=== PATIENT | male | born 1965 | race Caucasian/White ===

== ENCOUNTER 2017-11-23 21:24 | Emergency (ER) | payer OTHER ==
[~2017-11-23] VITALS: Ht 177.8 cm; Wt 116.3 kg
[~2017-11-23 21:24] MED LIST changes: -CIPR250T3 PO; -LEVO750T23 PO; -NVLG SC; -ONDA4TAB10 SL; -PLQ200 PO; -PRED10TA PO
[2017-11-23 21:29] VITALS: Ht 177.8 cm; Wt 116.3 kg
[2017-11-23] MEDS ORDERED: NVLG SC (22:16)
[2017-11-23] MEDS ORDERED: CIPR250T3 PO (22:16)
[2017-11-23] MEDS ORDERED: PLQ200 PO (22:16)
[2017-11-23] MEDS ORDERED: PRED10TA PO (22:16)
[2017-11-23] MEDS ORDERED: LSN25 PO (22:16)
[2017-11-23] MEDS ORDERED: INSDGI SC (22:16)
[2017-11-23] MEDS ORDERED: KETOROLAC TROMETHAMINE 30 MG/ML VIAL IV STA (23:07)
[2017-11-23] MEDS ORDERED: METOCLOPRAMIDE HCL INJ 5 MG/ML 2 ML VIAL IV. STA (23:07)
[2017-11-23] MEDS ORDERED: ACETAMINOPHEN IV 1,000 MG in EMPTY BAG 0 ML IV ONE (23:15)
[2017-11-23] MEDS ORDERED: SODIUM CHLORIDE 0.9% 1000ML 1,000 ML, SODIUM CHLORIDE 0.9% 1000ML 1,000 ML IV ONE (23:15)
[2017-11-23] MEDS ORDERED: ACETAMINOPHEN 1000 MG/100 ML IV IV ONE (23:28)
[2017-11-23 23:42] LABS: INFLUENZA B ANTIGEN Neg for Influ B (NEG)
[2017-11-24 00:01] LABS: HEMATOCRIT 41.4 % (42-52); HEMOGLOBIN 14.8 g/dL (14.0-18.0); IG# 0.02 K/uL (0.00-0.02); LYMPH % 2.2 %; LYMPH ABS # 0.22 K/uL (1.2-3.4); MEAN CELL VOLUME 84.5 fL (80-100); MEAN CORPUSCULAR HEMOGLOBIN 30.2 pg (25-34); MEAN CORPUSCULAR HGB CONC 35.7 g/dl (32-36); MEAN PLATELET VOLUME 11.5 fL (7.4-10.4); MONO % 4.9 %; NEUT % 92.7 %; NEUT ABS # 9.46 K/uL (1.4-6.5); PLATELET COUNT 140 K/uL (130-400); RED CELL DISTRIBUTION WIDTH SD 42.8 fL (36.4-46.3)
[2017-11-24 00:08] LABS: ALBUMIN 3.1 gm/dl (3.4-5.0); CALCIUM 8.5 mg/dl (8.5-10.1); CREATININE 1.9 mg/dl (0.60-1.40)
[2017-11-24 00:11] LABS: TOTAL PROTEIN 8.4 gm/dl (6.4-8.2)
[2017-11-24] MEDS ORDERED: LEVO750T23 PO (01:57)
[2017-11-24] MEDS ORDERED: ONDA4TAB10 SL (01:57)
[2017-11-24] MEDS ORDERED: LEVOFLOXACIN 250 MG TAB PO ONE (02:00)
[2017-11-24] MEDS ORDERED: ONDANSETRON HOME PACK 4MG OD TAB PO ONE (02:00)
[2017-11-24 02:30] VITALS: BP 118/58; PULSE 90; TEMP 37; O2SAT 94
--- NOTE | 2017-11-24 06:55 | DIAGNOSTIC IMAGING REPORT ---
CHEST 2 VIEWS ROUTINE CLINICAL HISTORY: Fever. Cough. Dyspnea COMPARISON STUDY: 10/07/2015 FINDINGS: Developing parenchymal infiltrate left lung base. Extensive granulomatous change throughout the mediastinal hilar regions which has been described previously. Left infrahilar calcified granulomas considered stable. Pulmonary apices are considered clear. IMPRESSION: 1. Extensive chronic granulomatous change. 2. Probable developing parenchymal infiltrate left base. The above report was generated using voice recognition software. It may contain grammatical, syntax or spelling errors. Electronically signed by: Al Luevano M.D. 11/24/2017 6:54 AM Dictated Date/Time: 11/24/2017 6:53 AM
--- NOTE | 2017-11-27 22:05 | EMERGENCY ROOM VISIT NOTE ---
History First contact with patient: 22:43 Chief Complaint: FEVER Stated Complaint: FEVER, CHILLS, NAUSEA FOR 4 DAYS History of Present Illness The patient is a 52 year old male who presents to the Emergency Room with complaints of fever, chills, and nausea for the past 4 days. The patient has a history of sarcoidosis and is on immunosuppressants. He takes plaqueinil and prednisone on a daily basis. The patient went to his primary care physician's office and was started on Cipro for her symptoms. He states tonight his symptoms have worsened, prompting him to come to the ER. The patient feels like he is breathing well, and does not significantly short of breath. He has not had abdominal pain. The patient notes a rash on his right leg which evidently occurs from time to time when he becomes ill. The patient is diabetic. He rates his overall discomfort a 6/10.. Review of Systems More than 10 systems were reviewed and otherwise negative with the exception of history of present illness. Past Medical/Surgical History Medical Problems: (1) Cholecystitis Family History No pertinent family history Social History Smoking Status: Never Smoker Alcohol Use: none Marital Status: Occupation Status: employed Current/Historical Medications Scheduled Aspirin (Aspirin Ec), 81 MG PO QPM Ciprofloxacin (Cipro), 250 MG PO BID Hydroxychloroquine Sulfate (Hydroxychloroquine Sulfat), 200 MG PO BID Insulin Aspart (Novolog), 1 DOSE SC ACHS Insulin Glargine (Lantus), 50 UNITS SC DAILY Levofloxacin (Levaquin), 1 TAB PO DAILY Lisinopril (Lisinopril), 2.5 MG PO DAILY Ondasetron Odt (Zofran Odt), 4 MG SL Q6H Prednisone (Prednisone), 5 MG PO UD Prednisone Tab (Prednisone), 10 MG PO UD Physical Exam Vital Signs Date Time Temp Pulse Resp B/P (MAP) Pulse Ox O2 Delivery O2 Flow Rate FiO2 11/24/17 02:30 37.0 90 16 118/58 94 11/24/17 00:31 38.0 103 18 115/49 92 Room Air 11/23/17 23:20 Room Air 11/23/17 23:17 121 11/23/17 22:56 39.5 116 20 136/62 93 Room Air 11/23/17 21:29 37.5 125 19 144/74 94 Room Air Physical Exam VITALS: Vitals are noted on the nurse's note and reviewed by myself. Vital signs with fever GENERAL: Well-developed, well-nourished,white male, who appears mildly ill. Patient is cooperative with the examination. HEAD: Normocephalic atraumatic. EARS: External ear normal. External auditory canals clear, tympanic membranes pearly cobb without erythema or effusion bilaterally. EYES: Pupils equal round and reactive to light and accommodation. Conjunctivae without injection, sclerae without icterus. Extraocular movements intact. NOSE: Patent, turbinates without inflammation or discharge. MOUTH: Mucous membranes moist. Tonsils are not enlarged. Pharynx without erythema, blood, or exudate. Uvula midline. Airway patent. NECK: Supple without nuchal rigidity. No lymphadenopathy. No thyromegaly. Cervical spine is nontender. HEART: Regular rate and rhythm without murmurs gallops or rubs. LUNGS: Clear to auscultation bilaterally without wheezes, rales or rhonchi. No retractions or accessory muscle use. ABDOMEN: Positive normal bowel sounds x 4. Soft, nontender, without masses or organomegaly. No guarding or rebound tenderness. MUSCULOSKELETAL: No muscle atrophy, erythema, or edema noted. Full range of motion without joint tenderness in all extremities. Medical Decision & Procedures ER Provider Diagnostic Interpretation: CHEST 2 VIEWS ROUTINE CLINICAL HISTORY: Fever. Cough. Dyspnea COMPARISON STUDY: 10/07/2015 FINDINGS: Developing parenchymal infiltrate left lung base. Extensive granulomatous change throughout the mediastinal hilar regions which has been described previously. Left infrahilar calcified granulomas considered stable. Pulmonary apices are considered clear. IMPRESSION: 1. Extensive chronic granulomatous change. 2. Probable developing parenchymal infiltrate left base Laboratory Results 11/23/17 22:15 Red Blood Count 4.90, Mean Corpuscular Volume 84.5, Mean Corpuscular Hemoglobin 30.2, Mean Corpuscular Hemoglobin Concent 35.7, Mean Platelet Volume 11.5, Neutrophils (%) (Auto) 92.7, Lymphocytes (%) (Auto) 2.2, Monocytes (%) (Auto) 4.9, Eosinophils (%) (Auto) 0.0, Basophils (%) (Auto) 0.0, Neutrophils # (Auto) 9.46, Lymphocytes # (Auto) 0.22, Monocytes # (Auto) 0.50, Eosinophils # (Auto) 0.00, Basophils # (Auto) 0.00 11/23/17 22:15 Test 11/23/17 22:15 11/23/17 23:15 11/23/17 23:21 11/24/17 01:19 White Blood Count 10.20 K/uL (4.8-10.8) Red Blood Count 4.90 M/uL (4.7-6.1) Hemoglobin 14.8 g/dL (14.0-18.0) Hematocrit 41.4 % (42-52) Mean Corpuscular Volume 84.5 fL (80-100) Mean Corpuscular Hemoglobin 30.2 pg (25-34) Mean Corpuscular Hemoglobin Concent 35.7 g/dl (32-36) Platelet Count 140 K/uL (130-400) Mean Platelet Volume 11.5 fL (7.4-10.4) Neutrophils (%) (Auto) 92.7 % Lymphocytes (%) (Auto) 2.2 % Monocytes (%) (Auto) 4.9 % Eosinophils (%) (Auto) 0.0 % Basophils (%) (Auto) 0.0 % Neutrophils # (Auto) 9.46 K/uL (1.4-6.5) Lymphocytes # (Auto) 0.22 K/uL (1.2-3.4) Monocytes # (Auto) 0.50 K/uL (0.11-0.59) Eosinophils # (Auto) 0.00 K/uL (0-0.5) Basophils # (Auto) 0.00 K/uL (0-0.2) RDW Standard Deviation 42.8 fL (36.4-46.3) RDW Coefficient of Variation 14.0 % (11.5-14.5) Immature Granulocyte % (Auto) 0.2 % Immature Granulocyte # (Auto) 0.02 K/uL (0.00-0.02) Anion Gap 9.0 mmol/L (3-11) Est Creatinine Clear Calc Drug Dose 56.8 ml/min Estimated GFR () 45.3 Estimated GFR (Non- 39.1 BUN/Creatinine Ratio 14.9 (10-20) Calcium Level 8.5 mg/dl (8.5-10.1) Total Bilirubin 1.4 mg/dl (0.2-1) Aspartate Amino Transf (AST/SGOT) 18 U/L (15-37) Alanine Aminotransferase (ALT/SGPT) 25 U/L (12-78) Alkaline Phosphatase 109 U/L (45-117) Total Protein 8.4 gm/dl (6.4-8.2) Albumin 3.1 gm/dl (3.4-5.0) Globulin 5.3 gm/dl (2.5-4.0) Albumin/Globulin Ratio 0.6 (0.9-2) Lipase 93 U/L (73-393) Influenza Type A Antigen Neg for Influ A (NEG) Influenza Type B Antigen Neg for Influ B (NEG) Bedside Lactic Acid Venous 1.36 mmol/L (0.90-1.70) Urine Color DK YELLOW Urine Appearance CLEAR (CLEAR) Urine pH 5.0 (4.5-7.5) Urine Specific Pace 1.028 (1.000-1.030) Urine Protein 1+ (NEG) Urine Glucose (UA) 1+ (NEG) Urine Ketones 1+ (NEG) Urine Occult Blood TRACE (NEG) Urine Nitrite NEG (NEG) Urine Bilirubin NEG (NEG) Urine Urobilinogen NEG (NEG) Urine Leukocyte Esterase NEG (NEG) Urine WBC (Auto) 1-5 /hpf (0-5) Urine RBC (Auto) 5-10 /hpf (0-4) Urine Hyaline Casts (Auto) 1-5 /lpf (0-5) Urine Epithelial Cells (Auto) 10-20 /lpf (0-5) Urine Bacteria (Auto) NEG (NEG) Medications Administered Medications (Trade) Dose Ordered Sig/Jovany Route Start Time Stop Time Status Last Admin Dose Admin Sodium Chloride/ Sodium Chloride 2,000 ml @ 999 mls/hr Q2H1M ONCE IV 11/23/17 23:15 11/24/17 01:15 DC 11/23/17 23:15 999 MLS/HR Ketorolac Tromethamine (Toradol Inj) 30 mg NOW STAT IV 11/23/17 23:07 11/23/17 23:11 DC 11/23/17 23:31 30 MG Metoclopramide HCl (Reglan Inj) 10 mg NOW STAT IV. 11/23/17 23:07 11/23/17 23:11 DC 11/23/17 23:31 10 MG Acetaminophen (Ofirmev Iv) 1,000 mg STK-MED ONCE IV 11/23/17 23:28 11/23/17 23:29 DC 11/23/17 23:31 1,000 MG Levofloxacin (Levaquin Tab) 750 mg NOW ONCE PO 11/24/17 02:00 11/24/17 02:01 DC 11/24/17 01:54 750 MG Ondansetron HCl (ZOFRAN ODT 4MG Home Pack) 1 homepack UD ONCE PO 11/24/17 02:00 11/24/17 02:01 DC 11/24/17 01:54 1 HOMEPACK ED Course Physical exam and history were performed. Nursing notes, EMR, and Medication List were personally reviewed. Patient appears to have fever symptoms for the past few days. He appears ill and flulike on examination. He is considered immunosuppressed. IV access was established and labs were obtained. The patient was aggressively hydrated with normal saline. He was given IV Toradol and IV Tylenol in the department. X- ray was performed. Cultures were obtained. The patient's blood work is as above and was reviewed. He does not have a significantly elevated white blood cell count, gross anemia, or significant electrolyte imbalance. His sugar is elevated at greater than 200. POC Lactic acid is normal with cultures pending. Influenza swabs were also negative. The patient's chest x-ray was reviewed by myself and my attending, and we did not appreciate significant change from previous imaging studies. Official radiology read was pending at the time of our interpretation, and did return as above. I discussed further options of care with the patient and family. His fever improved significantly with care here in the department, and clinically he felt much better. His heart rate returned to essentially normal, and subjectively reported almost complete resolution of his discomfort. Taking into consideration the patient's chronic medical disease I did offer admission to the facility. After discussing this, the patient and family felt comfortable with discharge home. I will change the patient from Cipro to Levaquin for antibiotic coverage. The patient was asked to follow with his PCP on a short interval for a recheck. He understands the importance of returning with any new , worsening, or concerning symptoms. The chart was completed utilizing Assignment Editor Voice Recognition Software. Grammatical errors, random word insertions, pronoun errors, and incomplete sentences are an occasional consequence of this system due to software limitations, ambient noise, and hardware issues. Any formal questions or concerns about the content, text, or information contained within the body of this dictation should be directly addressed to the provider for clarification. . Medical Decision Differential diagnosis: Etiologies such as viral syndrome, otitis, pharyngitis, pneumonia, influenza, meningitis, urinary tract infection, sepsis, bacteremia, as well as others were entertained. Impression Primary Impression: Fever Additional Impression: Influenza-like symptoms Departure Information Dispostion Home / Self-Care Condition GOOD Prescriptions Ondasetron Odt (ZOFRAN ODT) 4 Mg Tab 4 MG SL Q6H for Nausea, #12 TAB Prov: Los Christian PA-C 11/24/17 Levofloxacin (LEVAQUIN) 750 Mg Tab 1 TAB PO DAILY for 7 Days, #7 TAB Prov: Los Christian PA-C 11/24/17 Referrals Amando Rosales M.D. (PCP) Forms HOME CARE DOCUMENTATION FORM, IMPORTANT VISIT INFORMATION Patient Instructions My [facility] Additional Instructions You were seen and evaluated today on an emergency basis only. This is not a substitute for, or an effort to provide, complete comprehensive medical care. It is not possible to recognize and treat all injuries or illnesses in a single emergency department visit. For this reason it is recommended that you followup with your primary care physician's office in the next 1-2 days for a recheck of your condition. For baseline pain relief you may alternate ibuprofen and acetaminophen every 4 hours for pain control. Take 600 mg ibuprofen (Advil) and then 4 hours later take 1000 mg acetaminophen (Tylenol). Do not take more than 3000 mg acetaminophen in a single day. Zofran 4 mg ODT: Dissolve 1 tablet every 6 hrs as needed for nausea. Take Levaquin daily for the next 7 days. Discontinue Cipro. You are welcome to return to the emergency department anytime with new, worsening, or concerning symptoms. Problem Qualifiers
== END 2017-11-24 02:30 | disposition home or self-care (01) ==
LOC: C.EDB 21:24 → C.EDA 11-24 02:30
DX: R50.9 Fever, unspecified (principal); R11.0 Nausea; Z79.899 Other long term (current) drug therapy; D86.9 Sarcoidosis, unspecified

== ENCOUNTER → 2017-11-23 | Outpatient (CLI) | payer OTHER ==
[~2017-11-23] MED LIST: ASPI81TA28 PO; CIPR250T3 PO; HYDR0.5T PO; INSDGI SC; INSUINJ SC; LEVO750T23 PO; LSN25 PO; NVLG SC; NVLGI SC; ONDA4TAB10 SL; ONDA4TAB46 PO; PLQ200 PO; PRED-301 PO; PRED10TA PO; RED YEAST PO
[2017-11-23 16:01] LABS: BASO % 0.1 %; BASO ABS # 0.01 K/uL (0-0.2); HEMATOCRIT 41.5 % (42-52); HEMOGLOBIN 14.5 g/dL (14.0-18.0); IG# 0.03 K/uL (0.00-0.02); LYMPH ABS # 0.63 K/uL (1.2-3.4); MEAN CORPUSCULAR HEMOGLOBIN 29.4 pg (25-34); MEAN CORPUSCULAR HGB CONC 34.9 g/dl (32-36); MEAN PLATELET VOLUME 10.8 fL (7.4-10.4); MONO % 8.4 %; MONO ABS # 0.88 K/uL (0.11-0.59); NEUT % 85.2 %; NEUT ABS # 8.93 K/uL (1.4-6.5); PLATELET COUNT 146 K/uL (130-400); RED CELL DISTRIBUTION WIDTH SD 42.5 fL (36.4-46.3); WHITE BLOOD COUNT 10.48 K/uL (4.8-10.8)
[2017-11-23 16:22] LABS: ALBUMIN 3.2 gm/dl (3.4-5.0); ALT/SGPT 23 U/L (12-78); AST/SGOT 17 U/L (15-37); BLOOD UREA NITROGEN 27 mg/dl (7-18); CALCIUM 8.5 mg/dl (8.5-10.1); CARBON DIOXIDE 26 mmol/L (21-32); CREATININE 1.87 mg/dl (0.60-1.40); GLUCOSE 198 mg/dl (70-99); POTASSIUM 3.8 mmol/L (3.5-5.1); SODIUM 130 mmol/L (136-145)
[2017-11-23 16:33] LABS: ALKALINE PHOSPHATASE 107 U/L (45-117); TOTAL PROTEIN 8.5 gm/dl (6.4-8.2)
== END | disposition home or self-care (01) ==
LOC: C.LAB1850 15:20
PROVIDERS: ATTEND Physician Assistant
DX: B09 Unspecified viral infection characterized by skin and mucous membrane lesions (principal)

== ENCOUNTER → 2017-12-08 | Outpatient (CLI) | payer OTHER ==
[~2017-12-08] MED LIST changes: +CIPR250T3 PO; -HYDR0.5T PO; -INSUINJ SC; +NVLG SC; -NVLGI SC; +ONDA4TAB10 SL; -ONDA4TAB46 PO; +PERFLUTREN LIPID MICROSPHERE (DEFINITY) IV ONE; +PLQ200 PO; +PRED10TA PO; -RED YEAST PO
[2017-12-08 16:23] LABS: BLOOD UREA NITROGEN 21 mg/dl (7-18); CALCIUM 8.9 mg/dl (8.5-10.1); CARBON DIOXIDE 32 mmol/L (21-32); CREATININE 1.45 mg/dl (0.60-1.40); GLUCOSE 168 mg/dl (70-99); POTASSIUM 4.1 mmol/L (3.5-5.1); SODIUM 137 mmol/L (136-145)
--- NOTE | 2017-12-08 17:26 | ECHOCARDIOGRAM REPORT ---
*NOTICE TO RECEIVING CONSTITUTION [employer]Y AGENCY This information is strictly Confidential and protected under [place] law. [place] law prohibits you from making any further disclosure of this information unless further disclosure is expressly permitted by the written consent of the person to whom it pertains or is authorized by law. A general authorization for the release of medical or other information is not sufficient for this purpose. Hospital accepts no responsibility if the information is made available to any other person, INCLUDING THE PATIENT. Interpretation Summary * Name: PEREZ MOTT Study Date: 12/08/2017 02:46 PM BP: 144/71 mmHg * Patient Location: [facility] HR: 75 * : 1965 (M/d/yyyy) Gender: Male Height: 70 in * Age: 52 yrs Ethnicity: [place] Weight: 250 lb * Ordering Physician: Fran Vicente * Referring Physician: Fran Vicente PA-C * Performed By: Ryann Mendez RDCS * * Reason For Study: Shortness of Breath, Aortic Valve Disorder (424.1) * BSA: 2.3 m2 * -- Conclusions -- * The study was technically adequate. * There is borderline concentric left ventricular hypertrophy. * Left ventricular systolic function is normal. * Grade I diastolic dysfunction, (abnormal relaxation pattern). * Mild aortic regurgitation. * Right ventricular systolic pressure is normal. * Compared to study performed in 2013, there is no significant change Procedure Details * A complete two-dimensional transthoracic echocardiogram was performed (2D, M-mode, Doppler and color flow Doppler). * A contrast injection of Definity was performed to improve assessment of LV function. * Contrast was injected into an intravenous site in the right arm. * One vial of Definity ultrasound contrast was diluted in normal saline to a total volume of 10 ml. A total of '2' ml of solution was administered during imaging. * Lot # [id number] of Definity utilized for procedure. * Expiration date . * The attending nurse who injected the contrast agent was Sandi Serrano RN. * The study was technically adequate. Left Ventricle * The left ventricle is grossly normal size. * There is borderline concentric left ventricular hypertrophy. * Ejection Fraction = 60-65%. * Left ventricular systolic function is normal. * Grade I diastolic dysfunction, (abnormal relaxation pattern). * The left ventricular wall motion is normal. Right Ventricle * The right ventricle is normal in size and function. * The right ventricular systolic function is normal as assessed by tricuspid annular plane systolic excursion (TAPSE) (normal >1.5 cm). Atria * The left atrial size is normal. * Right atrial size is normal. Mitral Valve * The mitral valve is grossly normal. * Significant mitral regurgitation is absent. Tricuspid Valve * The tricuspid valve is not well visualized, but is grossly normal. * There is trace tricuspid regurgitation. * Right ventricular systolic pressure is normal. Aortic Valve * The aortic valve is not well visualized. * Probably trileaflet * No hemodynamically significant valvular aortic stenosis. * Mild aortic regurgitation. Great Vessels * The aortic root is normal size. Pericardium/Pleural * There is no pericardial effusion. Great Vessels * Normal inferior vena cava diameter and respiratory variation suggests normal central venous pressure. MMode 2D Measurements and Calculations IVSd 1.2 cm IVSs 1.5 cm LVIDd 5.3 cm LVIDs 3.6 cm LVPWd 1.3 cm LVPWs 1.4 cm IVS/LVPW 0.95 FS 32.2 % EDV(Teich) 135.6 ml ESV(Teich) 54.2 ml EF(Teich) 60.0 % EDV(cubed) 149.3 ml ESV(cubed) 46.5 ml EF(cubed) 68.9 % % IVS thick 21.3 % % LVPW thick 9.7 % LV mass(C)d 267.2 grams LV mass(C)dI 116.4 grams/m\S\2 LV mass(C)s 184.5 grams LV mass(C)sI 80.4 grams/m\S\2 SV(Teich) 81.4 ml SI(Teich) 35.5 ml/m\S\2 SV(cubed) 102.8 ml SI(cubed) 44.8 ml/m\S\2 Ao root diam 2.8 cm Ao root area 6.2 cm\S\2 ACS 1.6 cm LA dimension 3.1 cm LA/Ao 1.1 LVOT diam 2.2 cm LVOT area 3.9 cm\S\2 LVAd ap4 34.2 cm\S\2 LVLd ap4 8.0 cm EDV(MOD-sp4) 118.7 ml EDV(sp4-el) 123.8 ml LVAs ap4 18.8 cm\S\2 LVLs ap4 7.9 cm ESV(MOD-sp4) 38.0 ml ESV(sp4-el) 38.2 ml EF(MOD-sp4) 68.0 % EF(sp4-el) 69.1 % LVAd ap2 32.8 cm\S\2 LVLd ap2 8.5 cm EDV(MOD-sp2) 112.7 ml EDV(sp2-el) 107.0 ml LVAs ap2 18.4 cm\S\2 LVLs ap2 7.4 cm ESV(MOD-sp2) 39.8 ml ESV(sp2-el) 38.6 ml EF(MOD-sp2) 64.7 % EF(sp2-el) 63.9 % LVLd %diff 6.0 % EDV(MOD-bp) 115.5 ml LVLs %diff -6.03 % ESV(MOD-bp) 39.9 ml EF(MOD-bp) 65.4 % SV(MOD-sp4) 80.7 ml SI(MOD-sp4) 35.2 ml/m\S\2 SV(MOD-sp2) 72.9 ml SI(MOD-sp2) 31.8 ml/m\S\2 SV(MOD-bp) 75.6 ml SI(MOD-bp) 32.9 ml/m\S\2 SV(sp4-el) 85.5 ml SI(sp4-el) 37.3 ml/m\S\2 SV(sp2-el) 68.3 ml SI(sp2-el) 29.8 ml/m\S\2 Doppler Measurements and Calculations MV E max luiza 81.7 cm/sec MV A max luiza 117.8 cm/sec MV E/A 0.69 MV dec time 0.30 sec Ao V2 max 228.1 cm/sec Ao max PG 20.8 mmHg Ao max PG (full) 15.6 mmHg Ao V2 mean 153.4 cm/sec Ao mean PG 10.5 mmHg Ao mean PG (full) 7.7 mmHg Ao V2 VTI 41.2 cm CELESTE(I,A) 2.3 cm\S\2 CELESTE(I,D) 2.3 cm\S\2 CELESTE(V,A) 1.9 cm\S\2 CELESTE(V,D) 1.9 cm\S\2 AI max luiza 438.0 cm/sec AI max PG 78.0 mmHg AI dec slope 206.4 cm/sec\S\2 AI P1/2t 621.7 msec LV V1 max PG 5.2 mmHg LV V1 mean PG 2.8 mmHg LV V1 max 114.2 cm/sec LV V1 mean 77.0 cm/sec LV V1 VTI 24.2 cm SV(Ao) 256.6 ml SI(Ao) 111.8 ml/m\S\2 SV(LVOT) 94.3 ml SI(LVOT) 41.1 ml/m\S\2 PA V2 max 113.9 cm/sec PA max PG 5.2 mmHg TR max luiza 184.4 cm/sec
== END | disposition home or self-care (01) ==
LOC: C.CPL 14:33
PROVIDERS: ATTEND Physician Assistant
DX: I35.9 Nonrheumatic aortic valve disorder, unspecified (principal); N18.2 Chronic kidney disease, stage 2 (mild)

== ENCOUNTER → 2018-02-22 | Outpatient (CLI) | payer OTHER ==
[~2018-02-22] MED LIST changes: -PERFLUTREN LIPID MICROSPHERE (DEFINITY) IV ONE
--- NOTE | 2018-02-23 12:16 | PULMONARY FUNCTION TEST ---
Pre-bronchodilator spirometry is well within normal limits. There was no significant response to bronchodilator, but this should not preclude a therapeutic trial if clinically warranted. Lung volumes were essentially within normal limits. Diffusion capacity was well within normal limits. Clinical correlation is needed.
== END | disposition home or self-care (01) ==
LOC: C.RC 11:16
PROVIDERS: ATTEND Internal Medicine Pulmonary Disease
DX: D86.9 Sarcoidosis, unspecified (principal)